=== PATIENT | female | born 1955 | race Caucasian/White ===

== ENCOUNTER 2025-06-29 18:46 | Emergency (ER) | payer MEDICARE, BC, SELFPAY ==
[2025-06-29 18:52] VITALS: BP 142/72
[2025-06-29 19:50] LABS: Hematocrit 39.3 % (37.0-47.0); Hemoglobin 12.8 g/dL (12.0-16.0); Mean Corp Hgb Conc. 32.6 g/dL (33.0-37.0); Mean Corpuscular Volume 80.7 fL (81.0-99.0); Platelet Count 481 10^3/uL (130-400); Red Cell Dist. Width 13.4 % (11.5-14.5)
[2025-06-29 19:53] LABS: ALT (SGPT) 48 U/L (0-35); AST (SGOT) 37 U/L (14-36); Albumin 4.9 g/dl (3.5-5.0); Alkaline Phosphatase 90 U/L (38-126); Blood Urea Nitrogen 12 mg/dl (7-17); Calcium 9.4 mg/dl (8.4-10.2); Carbon Dioxide 28 mmol/L (22-30); Chloride 100 mmol/L (98-107); Glucose 117 mg/dl (70-99); Lipase 65 U/L (23-300); Potassium 4.4 mmol/L (3.5-5.1); Sodium 138 mmol/L (135-145); Total Protein 7.9 g/dl (6.3-8.2); eGFR > 60.00
[2025-06-29 20:26] LABS: Nucleated Red Blood Cells % 0 %
[2025-06-29 21:54] VITALS: BP 134/79
[2025-06-29 23:17] VITALS: BP 102/63
[2025-06-29 23:21] VITALS: BMI 37.5
[2025-06-30] VITALS: BP 116/66
[2025-06-30 01:00] VITALS: BP 119/63
[2025-06-30 02:22] LABS: Urine Character Clear (Clear)
[2025-06-30 02:45] LABS: Urine Red Blood Cell None Seen /HPF (0-2)
--- NOTE | 2025-06-30 04:14 | ED.GENMED ---
History of Present Illness
General
Chief Complaint: Abdominal Pain
Source: patient
Exam Limitations: none
Time Seen by Provider: 06/30/25 00:05
Nursing documentation reviewed up to this point in time: agreed with
History of Present Illness
History of Present Illness:
69-year-old female past medical history of hypertension, diabetes presenting to the emergency department with loose stool over the past 4 weeks usually 1-2 times per day left-sided abdominal pain associated. Does not follow-up appointment with a GI
doctor in 5 days. Has had some intermittent nausea, none ongoing.
Review of Systems
Review of Systems
Allergies reviewed?: Yes
All Other Systems: ROS reviewed and negative except as documented in HPI and ROS
Phy Exam
Physical Exam
Physical Exam:
GENERAL: Alert , in no apparent distress
EYE: pupils equal and reactive
NECK: Supple, no significant adenopathy.
ENT: o/p clr, mmm.
CARDIAC: Regular rate and rhythm .
LUNGS: Clear breath sounds bilaterally, no acute respiratory distress, no wheezes/rales/rhonchi
ABDOMEN: Vague mild discomfort to the left lateral abdomen. Otherwise remainder soft, without focal tenderness, no r/g, no cvat
NEUROLOGICAL: Alert and oriented, no focal neuro deficits
SKIN: Warm and dry, skin intact.
MUSCULOSKELETAL: No edema, well perfused.
PSYCH: Normal and appropriate interaction.
Course
Orders/Labs/Results
Orders:
Orders
06/29/25 19:06
Complete Blood Count/With Diff Urgent
Comprehensive Metabolic Panel Urgent
Lipase Urgent
06/30/25 00:41
CT Abd/Pel (IV only)-DH only Urgent
Comment:
Reason For Exam: llq pain diarrhea
06/30/25 01:59
Urinalysis Reflex To Culture Urgent
Date Specimen was Collected: 06/30/25
Time Specimen was Collected: 01:56
Urine Microscopic Reflex Cult Urgent
Urine Culture Urgent
JONATHAN Source: U
Specimen Description:
Date Specimen was Collected: 06/30/25
Time Specimen was Collected: 01:56
Abnormal Lab Results
06/29/25 06/30/25
19:06 01:59
WBC 16.9 H 10^3/uL
(4.8-10.8)
MCV 80.7 L fL
(81.0-99.0)
MCH 26.3 L pg
(27.0-31.0)
MCHC 32.6 L g/dL
(33.0-37.0)
Plt Count 481 H 10^3/uL
(130-400)
Abs Immat Gran (auto) 0.1 H 10^3/uL
(0-0.05)
Absolute Neuts (auto) 9.3 H 10^3/uL
(1.4-6.5)
Absolute Lymphs (auto) 6.2 H 10^3/uL
(1.2-3.4)
Absolute Monos (auto) 1.0 H 10^3/uL
(0.1-0.6)
Glucose 117 H mg/dl
(70-99)
AST 37 H U/L
(14-36)
ALT 48 H U/L
(0-35)
Leukocyte Esterase Rfl 2+ A
(Negative)
Urine Bacteria (Reflex) Few A
(Negative)
06/29/25 19:06
06/29/25 19:06
Vital Signs
Initial and Last Documented VS:
Initial Vital Signs
Temp Pulse Resp BP Pulse Ox
98.9 F 79 18 142/72 99
06/29/25 18:52 06/29/25 18:52 06/29/25 18:52 06/29/25 18:52 06/29/25 18:52
Last Documented Vital Signs
Temp Pulse Resp BP Pulse Ox
97.9 F 74 20 119/63 97
06/29/25 21:54 06/30/25 02:00 06/30/25 02:00 06/30/25 01:00 06/30/25 01:45
MDM/Problems Addressed
MDM/Problems Addressed:
69-year-old female present emergency department with loose stool over the past 4 weeks. Also pain to the left side of the abdomen. On arrival vital signs normal patient in no distress does have some mild pain to left lateral abdomen considering CT
scan ordered. CT scan did not show any emergent findings labs showing elevated white count otherwise no emergent findings. At this point no evidence of any significant emergent pathology advised for close outpatient follow-up with GI. Return
precautions given.
*Pulse Oximetry
SaO2: 97
Oxygen Mode of Delivery: Room air
Patient hypoxic: no (97)
*Critical Care Note
Total Time (30-74mins, 75-104mins- exclusive of procedures): Not Applicable
ED Attending Note
-
Portions of this chart may have been created with voice recognition software.� Occasional wrong word or��sound alike� substitutions may have occurred due to the inherent limitations of voice recognition software.
Discharge Plan
Departure
Patient Disposition: Home (Routine Discharge)
Date of Disposition: 06/30/25
Time of Disposition: 04:17
Patient with high blood pressure during this ER visit?: No
Condition: Good
Covid-19: Not Applicable
Discharge Problem:
Diarrhea, Abdominal pain
Instructions: Abdominal Pain
Referrals:
Aga Acosta NP [Family Provider, Family Practice]
Activity Restrictions/Additional Instructions:
You came to the emergency department today with concerns of GI symptoms. Please follow closely with your GI doctor. Return for any worsening, new or concerning symptoms.
Interventions
Interventions:
*Risk Screen - Suicide Last Done: 06/29/25 18:52
DL-Urncjc-Wmgxcraenx Assessment Last Done: 06/29/25 23:22
Discharge Date and Time
Print Language: [id number]
[2025-06-30 04:35] VITALS: BP 124/64
== END 2025-06-30 04:39 | disposition home or self-care (01) ==
LOC: EMR 18:46
PROVIDERS: Emergency Medicine; Physician Assistant; EMERGENCY PHYSICIAN Student in an Organized Health Care Education/Training Program; FAMILY PHYSICIAN Nurse Practitioner Family
DX: R19.7 Diarrhea, unspecified (principal); R10.9 Unspecified abdominal pain; I10 Essential (primary) hypertension; E11.9 Type 2 diabetes mellitus without complications; D72.829 Elevated white blood cell count, unspecified
CPT/HCPCS: 99284; 74177; 80053; 81003; 81015; 83690; 85025; 87086; Q9967